=== PATIENT | female | born 1990 | race Caucasian/White ===

== ENCOUNTER 2020-06-10 17:38 | Emergency (ER) | payer MEDICARE, SELFPAY ==
[2020-06-10 17:52] VITALS: BP 111/70; PULSE 63; RESP 14; TEMP 36.8; O2SAT 96; BMI 21.4
--- NOTE | 2020-06-10 20:24 | ED.SKABFB ---
HPI - Skin/Abscess/Foreign Bdy General Chief complaint: Skin/Abscess/Foreign Body Stated complaint: MY BUTT HURTS RASH DIARRHEA ARM PAIN Time Seen by Provider: 06/10/20 20:21 Source: patient Mode of arrival: Ambulatory Limitations: no limitations History of Present Illness HPI narrative: 29F smoker with history of IVDA and recent hospitalization for debridement and I&D of left deltoid abscess presents with ongoing diarrhea since her hospitalization and now burning, raw sensation of her buttocks. She denies fever or chills. She denies N/V. She denies any blood in stool. She has a few loose stools daily, but this seems to be improving since starting Immodium. She denies CP, SOB, or abdominal pain. Also she complains of a small bump adjacent to the surgical site. It is painless and has had no drainage. She has not seen her doctors in follow up, but will do so shortly. She is not dizzy, weak, or lightheaded. MD complaint: other Onset (ago): day(s) Tetanus up to date: yes Related Data Previous Rx's Medication Instructions Recorded diphenoxylate-atropine [Lomotil] 1 tab PO Q12H PRN #14 tab 06/10/20 Allergies Allergy/AdvReac Type Severity Reaction Status Date / Time latex Allergy Verified 06/10/20 17:52 Review of Systems Constitutional Constitutional: Denies chills, Denies fatigue, Denies fever(s), Denies frequent falls, Denies lethargy and Denies weakness Eyes Eyes: Denies change in vision, Denies eye discharge, Denies irritation and Denies loss of vision ENT Ears, Nose, Mouth, and Throat: Denies change in voice, Denies dizziness, Denies neck pain, Denies sore throat and Denies throat swelling Cardiovascular Cardiovascular: Denies chest pain, Denies irregular heart rhythm, Denies lightheadedness, Denies palpitations, Denies dyspnea, Denies dyspnea on exertion and Denies orthopnea Respiratory Respiratory: Denies cough, Denies dyspnea, Denies dyspnea on exertion and Denies wheezing Gastrointestinal Gastrointestinal: Denies abdominal pain, Denies change in bowel habits, Denies diarrhea, Denies nausea and Denies vomiting Musculoskeletal Musculoskeletal: Denies neck pain and Denies numbness Integumentary/Breasts Skin/Breast: Denies pruritus, Denies erythema, Denies rash, Reports skin pain, Reports skin swelling and Denies wounds Neurologic Neurologic: Denies behavioral changes, Denies confusion, Denies dizziness, Denies frequent falls, Denies loss of vision, Denies numbness and Denies weakness Psychiatric Psychiatric: Denies anxiety, Denies behavioral changes, Denies confusion, Denies depression, Denies homicidal ideation and Denies suicidal ideation Endocrine Endocrine: Denies fatigue, Denies flushing and Denies palpitations Hematologic/Lymphatic Hematologic/Lymphatic: Denies easy bruising Allergic/Immunologic Allergic/Immunologic: Denies urticaria, Denies throat swelling and Denies wheezing Patient History Social History Smoking Status: Current every day smoker Smoking Status: Current every day smoker alcohol intake frequency: holidays/special occasions only Substance Use Type: does not use Exam Narrative Exam Narrative: GENERAL: [29] year old patient appears stated age. Well-nourished, well-developed patient, in mild distress. HEAD: Atraumatic. Normocephalic. EYES: Pupils equal round and reactive. Extraocular motions intact. No scleral icterus. No injection or drainage. ENT: Nose without bleeding, purulent drainage. Throat without erythema, tonsillar hypertrophy or exudate. Airway patent. NECK: Trachea midline. Non tender CARDIOVASCULAR: Regular rate and rhythm without murmurs, gallops, or rubs. RESPIRATORY: Clear to auscultation. Breath sounds equal bilaterally. No wheezes, rales, or rhonchi. GASTROINTESTINAL: Abdomen soft, non-tender, nondistended. RECTAL: No hemorrhoid, abscess, fissure noted. There is some redness and excoriation of the perianal area. EXTREMITIES: No edema or joint tenderness. BACK: Nontender without deformity or crepitance. No flank tenderness. NEURO: AOx3. SKIN: L deltoid with healing surgical site. No drainage, pain on palpation or surrounding erythema. Small area of swelling adjacent without pain, fluctuance, erythema. Otherwise No rash or erythema of visible areas Initial Vital Signs Initial Vital Signs: Vital Signs Temperature 98.3 F 06/10/20 17:52 Pulse Rate 63 06/10/20 17:52 Respiratory Rate 14 06/10/20 17:52 Blood Pressure 111/70 06/10/20 17:52 Pulse Oximetry 96 06/10/20 17:52 Course Course Course Narrative: discussed desire to obtain stool sample from patient due to concern for C.diff. Recommended labs and fluids, but patient and friend refuse stating that she largely feels ok and would prefer to just get a prescription for some antidiarrheal medication. Patient understands the risk of not doing diagnostic evaluation, but would prefer to hold off for now and follow up with her doctors in [place]. Vital Signs Vital signs: Vital Signs - 8 hr 06/10/20 17:52 06/10/20 20:49 Temperature 98.3 F Pulse Rate 63 63 Respiratory Rate 14 16 Blood Pressure 111/70 114/74 Pulse Oximetry 96 96 Discharge Plan Departure Patient Disposition: Home Clinical Impression: Chronic diarrhea Discharge Date/Time: 06/10/20 20:49 Instructions: Diarrhea Activity Restrictions/Additional Instructions: *You have been diagnosed with [chronic diarrhea, likely associated with an antibiotic use.] *What to do: *Take medications as directed *Follow up with your primary care provider in 2-3 days, call for an appointment. Let them know you were seen in the Emergency Department and that we ask that you be seen in follow up *Return to ER if you should have any new, worsening or concerning symptoms Prescriptions: New diphenoxylate-atropine [Lomotil] 2.5-0.025 mg tablet 1 tab PO Q12H PRN (Reason: diarrhea) Qty: 14 RF: 0 Referrals: [facility] [Outside]
[2020-06-10 20:49] VITALS: BP 114/74; PULSE 63; RESP 16; O2SAT 96
== END 2020-06-10 20:49 | disposition home or self-care (01) ==
PROVIDERS: Emergency Provider Emergency Medicine
DX: K52.9 Noninfective gastroenteritis and colitis, unspecified (principal)
CPT/HCPCS: 99281

== ENCOUNTER 2020-10-14 15:36 | Emergency (ER) | payer MEDICARE, SELFPAY ==
[2020-10-14 15:53] VITALS: BP 111/65; PULSE 88; RESP 14; TEMP 36.9; O2SAT 98
[2020-10-14 18:47] VITALS: BP 124/71; PULSE 71; RESP 18; O2SAT 100
--- NOTE | 2020-10-14 18:58 | ED.SKABFB ---
HPI - Skin/Abscess/Foreign Bdy General Chief complaint: Skin/Abscess/Foreign Body Stated complaint: abcess on arms,blood in stool,seizures Time Seen by Provider: 10/14/20 18:52 Source: patient Mode of arrival: Ambulatory Limitations: no limitations History of Present Illness HPI narrative: 30-year-old female daily smoker with history of seizures and former IV drug abuse presents with multiple painful swollen, red abscesses on her upper extremities, some of which she has been able to successfully drain at home. She states the largest was an IV site from hospitalization [facility]. She denies fever, chills nor nausea or vomiting. She states she has had frequent episodes of loose stools, many of which seem to have blood in them. She is not dizzy nor weak or lightheaded. She denies any chest pain, shortness of breath or abdominal pain. She denies any vaginal bleeding or discharge. She denies any recent use of IV drugs. She states that she is supposed to have a prescription for antibiotics to treat her abscess from [facility] but their pharmacy ?dropped the ball ?. Additionally she states that they were supposed to refill her Keppra but neglected to do so. complaint: abscess/boil Onset (ago): day(s) Tetanus up to date: yes Location: LUE and RUE Severity: moderate Quality: aching Pain Consistency: constant Relieving factors: none Exacerbating factors: palpation and movement Context: IVDA Associated symptoms: other Treatments prior to arrival: attempted to drain pus at home Related Data Previous Rx's Medication Instructions Recorded diphenoxylate-atropine [Lomotil] 1 tab PO Q12H PRN #14 tab 06/10/20 diphenoxylate-atropine [Lomotil] 1 tab PO DAILY PRN #10 tab 10/15/20 doxycycline hyclate 100 mg PO BID #20 tab 10/15/20 levetiracetam [Keppra] 500 mg PO BID #30 tab 10/15/20 Allergies Allergy/AdvReac Type Severity Reaction Status Date / Time latex Allergy Verified 10/14/20 15:53 Review of Systems Constitutional Constitutional: Denies chills, Denies fatigue, Denies fever(s), Denies frequent falls, Denies lethargy and Denies weakness Eyes Eyes: Denies change in vision, Denies eye discharge, Denies irritation and Denies loss of vision ENT Ears, Nose, Mouth, and Throat: Denies change in voice, Denies dizziness, Denies neck pain, Denies sore throat and Denies throat swelling Cardiovascular Cardiovascular: Denies chest pain, Denies irregular heart rhythm, Denies lightheadedness, Denies palpitations, Denies dyspnea, Denies dyspnea on exertion and Denies orthopnea Respiratory Respiratory: Denies cough, Denies dyspnea, Denies dyspnea on exertion and Denies wheezing Gastrointestinal Gastrointestinal: Denies abdominal pain, Denies change in bowel habits, Reports diarrhea, Denies nausea and Denies vomiting Musculoskeletal Musculoskeletal: Denies neck pain and Denies numbness Integumentary/Breasts Skin/Breast: Denies pruritus, Reports erythema, Denies rash, Reports skin pain, Reports skin swelling and Reports wounds Neurologic Neurologic: Denies behavioral changes, Denies confusion, Denies dizziness, Denies frequent falls, Denies loss of vision, Denies numbness and Denies weakness Psychiatric Psychiatric: Denies anxiety, Denies behavioral changes, Denies confusion, Denies depression, Denies homicidal ideation and Denies suicidal ideation Endocrine Endocrine: Denies fatigue, Denies flushing and Denies palpitations Hematologic/Lymphatic Hematologic/Lymphatic: Denies easy bruising Allergic/Immunologic Allergic/Immunologic: Denies urticaria, Denies throat swelling and Denies wheezing Patient History Social History Smoking Status: Current every day smoker Smoking Status: Current every day smoker alcohol intake frequency: holidays/special occasions only Substance Use Type: does not use, former substance user, crack/cocaine, heroin and methamphetamine Exam Narrative Exam Narrative: GENERAL: [30] year old patient appears stated age. Well-nourished, well-developed patient, in mild distress. HEAD: Atraumatic. Normocephalic. EYES: Pupils equal round and reactive. Extraocular motions intact. No scleral icterus. No injection or drainage. ENT: Nose without bleeding, purulent drainage. Throat without erythema, tonsillar hypertrophy or exudate. Airway patent. NECK: Trachea midline. Non tender CARDIOVASCULAR: Regular rate and rhythm without murmurs, gallops, or rubs. RESPIRATORY: Clear to auscultation. Breath sounds equal bilaterally. No wheezes, rales, or rhonchi. GASTROINTESTINAL: Abdomen soft, non-tender, nondistended. EXTREMITIES: Multiple cutaneous abscesses noted. The largest of which is on her right lateral arm proximal to the elbow. There is an area of fluctuance approximately 2 x 2 cm with a central necrotic head but no drainage and surrounding erythema and induration. Compartments are soft. Cap refill and sensation intact. The erythema covers much of her anterior biceps. Additionally, there is another smaller fluctuant mass on her left upper arm which she states was the 1 that was recently drained [place]. Otherwise No edema or joint tenderness. BACK: Nontender without deformity or crepitance. No flank tenderness. NEURO: AOx3. SKIN: No rash or erythema of visible areas Initial Vital Signs Initial Vital Signs: Vital Signs Temperature 98.4 F 10/14/20 15:53 Pulse Rate 88 10/14/20 15:53 Respiratory Rate 14 10/14/20 15:53 Blood Pressure 111/65 10/14/20 15:53 Pulse Oximetry 98 10/14/20 15:53 Procedures Abscess I/D I&D #1: Side (if applicable): right Local Anesthetic: bupivacaine 0.25% and with epi Amount of anesthesia used (mL): 8 Technique: incised with #11 blade Amount of fluid expressed (mL): 20 Irrigation: No Packing used?: none Complications: pain I&D #2: Site: upper extremity Side (if applicable): left Local Anesthetic: bupivacaine 0.25% and with epi Amount of anesthesia used (mL): 4 Technique: incised with #11 blade Amount of fluid expressed (mL): 2 Irrigation: No Packing used?: none Complications: pain Course Course Course Narrative: After initial exam I told the patient I recommended an IV, lab work and likely a CT of her upper extremities to establish that depth of the abscess. The patient is historically difficult IV stick and after 1st attempt by nursing she refused any further attempts. She then pushed on the abscess on her right arm and a large amount of purulence, foul smelling material came out. She felt notable improvement after this but after extensive discussion we elected to numb with Marcaine and perform incision and drainage. After this she felt much better and experience much less pain in her arm and allowed nursing 1 more attempt at blood work and an IV which was quick lift. On multiple occasions I explained to the patient my desire for lab work, an IV and imaging. She repeatedly refused and stated she had to get blood work done are reviewed tomorrow anyway so she would just go there. Orders Ordered: ED Orders 10/14/20 20:37 Wound Culture and Gram Stain Stat Discontinued Medications Bupivacaine HCl/Epinephrine Bitart (Bupivacaine 0.5% W/ Epi (Pf) 30 Ml Vial) 5 ml SUBCUT NOW ONE Stop: 10/14/20 21:25 Last Admin: 10/14/20 21:49 Dose: 5 ml Documented by: TAISHA Doxycycline Hyclate (Doxycycline Hyclate 100 Mg Tablet) 100 mg PO NOW ONE Stop: 10/15/20 00:00 Last Admin: 10/15/20 00:17 Dose: 100 mg Documented by: MARIA LUISA Vancomycin HCl (Vancomycin) 1,000 mg in 200 mls @ 200 mls/hr IV NOW ONE Stop: 10/14/20 21:15 Last Admin: 10/14/20 21:35 Dose: Not Given Documented by: TAISHA Vital Signs Vital signs: Vital Signs - 8 hr 10/15/20 00:28 Pulse Rate 79 Respiratory Rate 18 Blood Pressure 111/71 Pulse Oximetry 97 MDM - Skin/Abscess/Foreign Bdy MDM Narrative Medical decision making narrative: Multiple cutaneous abscesses with spontaneous drainage and/or improvement after I&D. No systemic findings. No signs of sepsis. Patient reports bloody diarrhea, but denies pain, fever, nausea or vomiting. Abdomen is soft and nontender and vitals are reassuring. Return precautions given and patient's questions answered to her apparent satisfaction. Discharge Plan Departure Patient Disposition: Home Clinical Impression: Abscess of skin or subcutaneous tissue Qualifiers: Site of cutaneous abscess: extremity Site of cutaneous abscess of extremity: upper extremity Laterality: right Qualified Code(s): L02.413 - Cutaneous abscess of right upper limb Instructions: DI for Skin Abscess Activity Restrictions/Additional Instructions: *You have been diagnosed with [cutaneous abscess with incision and drainage of right and left upper extremities.] *What to do: *Take medications as directed *Follow up with your primary care provider in 2-3 days, call for an appointment. Let them know you were seen in the Emergency Department and that we ask that you be seen in follow up *Return to ER if you should have any new, worsening or concerning symptoms, such as [worsening swelling, pain, fever, shaking chills or other concerning symptoms] Prescriptions: New doxycycline hyclate 100 mg tablet 100 mg PO BID Qty: 20 RF: 0 levetiracetam [Keppra] 500 mg tablet 500 mg PO BID Qty: 30 RF: 0 diphenoxylate-atropine [Lomotil] 2.5-0.025 mg tablet 1 tab PO DAILY PRN (Reason: diarrhea) Qty: 10 RF: 0 No Action diphenoxylate-atropine [Lomotil] 2.5-0.025 mg tablet 1 tab PO Q12H PRN (Reason: diarrhea) Qty: 14 RF: 0 Referrals: [facility] [Outside]
--- NOTE | 2020-10-14 20:49 | PC.NURSE ---
attempted IV start to [facility], found a vein just below axilla, pt refused stating, it feels strange when you touch it Pt requested I forgo cleaning of site and just poke vein. told patient that puts her at risk for additional infections. Pt unable to remain still or cooperative during start. Notified Dr Fonseca of difficulty in starting IV. Pt is refusing an IV saying she is just going to go home and cut it open herself using lidocaine she stole from the last hospital. Pt refusing any further blood draw or IV start. Pt has had 1 poke to [facility]. Site was prepped and cleaned using chlorhexadine per protocol for cultures.
[2020-10-14] MEDS: BUPIVACAINE 0.5% W/ EPI (PF) 30 ML VIAL 5 ML SUBCUT (21:49)
[2020-10-15] MEDS: DOXYCYCLINE HYCLATE 100 MG TABLET PO (00:17)
[2020-10-15 00:28] VITALS: BP 111/71; PULSE 79; RESP 18; O2SAT 97
== END 2020-10-15 00:30 | disposition home or self-care (01) ==
PROVIDERS: Emergency Provider Emergency Medicine
DX: L02.413 Cutaneous abscess of right upper limb (principal); L02.414 Cutaneous abscess of left upper limb; R19.7 Diarrhea, unspecified
CPT/HCPCS: 10061; 87070; 87075; 87077; 87205; 99281; 99283

== ENCOUNTER 2020-11-21 22:50 | Emergency (ER) | payer MEDICARE, SELFPAY ==
[2020-11-21 22:55] VITALS: BP 115/60; PULSE 89; RESP 17; TEMP 36.9; O2SAT 100; BMI 21.9
--- NOTE | 2020-11-21 23:13 | PC.NURSE ---
Patient has multiple scattered abcesses in different stages of healing; the one on her nose is new from yesterday, she states it was more of a pimple yesterday, and today it is open and red; Known previous abcesses that are still on patient are on bilateral arms, legs, near armpit, and underneath tongue. Some are scabbed over, some have some small amount of drainage. Hx IVDU Pt states she has had some chills this week
--- NOTE | 2020-11-21 23:36 | ED_ITS ---
HPI - Skin/Abscess/Foreign Bdy General Chief complaint: Skin/Abscess/Foreign Body Stated complaint: Abcesses on body Time Seen by Provider: 11/21/20 23:02 Source: patient Mode of arrival: Ambulatory Limitations: no limitations History of Present Illness HPI narrative: Patient is a 30-year-old female who states she has a history of seizure and IVDA but has been clean and sober since April. Presents today with multiple sores all over her body and she has previously. She has 1 on her left deltoid that is scabbed and healing it was apparently eye indeed while ago but was reinfected. Today she has a scab on her nose and her chin which she says just popped up this morning. She has multiple scabs on her legs. Her hands are quite swollen and red as well. She denies any fever or chills. She is having chronic diarrhea she left stool sample and it was a solid piece of stool. She also feels like she might have a bladder infection. She is requesting a refill of her seizure medication. She was seen back the beginning of September she was prescribed Keppra 500 twice a day. She has not gone to a primary care provider she has not been evaluated by a neurologist. She says she that she has mini-mal seizures every day, but cannot describe them to me MD complaint: rash and abscess/boil Location: face Related Data Previous Rx's Medication Instructions Recorded diphenoxylate-atropine [Lomotil] 1 tab PO Q12H PRN #14 tab 06/10/20 diphenoxylate-atropine [Lomotil] 1 tab PO DAILY PRN #10 tab 10/15/20 doxycycline hyclate 100 mg PO BID #20 tab 10/15/20 levetiracetam [Keppra] 500 mg PO BID #30 tab 10/15/20 mupirocin 1 applic TOPICAL BID #15 g 11/21/20 sulfamethoxazole-trimethoprim 1 tab PO BID 7 Days #14 tab 11/21/20 [Bactrim DS] doxycycline hyclate 100 mg PO BID #14 cap 11/22/20 Allergies Allergy/AdvReac Type Severity Reaction Status Date / Time latex Allergy Verified 10/14/20 15:53 Review of Systems Review of Systems ROS Unobtainable: All systems reviewed & are unremarkable except as noted in HPI and below Constitutional Constitutional: Denies chills, Denies fever(s), Denies lethargy and Denies weakness Integumentary/Breasts Skin/Breast: Reports system reviewed and no additional complaints, except as documented Neurologic Neurologic: Reports as per HPI and Denies weakness Patient History Medical History History of seizure Social History Smoking Status: Current every day smoker Smoking Status: Current every day smoker alcohol intake frequency: holidays/special occasions only Substance Use Type: does not use, former substance user, crack/cocaine, heroin and methamphetamine Exam Initial Vital Signs Initial Vital Signs: Vital Signs Temperature 98.5 F 11/21/20 22:55 Pulse Rate 89 11/21/20 22:55 Respiratory Rate 17 11/21/20 22:55 Blood Pressure 115/60 11/21/20 22:55 Pulse Oximetry 100 11/21/20 22:55 GENERAL: Alert female poor hygiene HEENT: Head atraumatic,EOMI, pupils reactive, face symmetric, moist mucous membranes CARDIOVASCULAR: Peripheral pulses intact RESPIRATORY: Speaks in full sentences without any respiratory distress EXTREMITIES: Normal range of motion, no clubbing or edema. Neurovascularly intact hands are swollen bilaterally NEUROLOGICAL: Alert and oriented x4.Normal gait and speech. SKIN: No multiple sores all over scabbed area on nose and chin no fluctuation. A healing wound on left deltoid new areas scabbed and healing on anterior shins. She has 1 spot on her right medial thigh. None of these are fluctuant erythematous abscesses. They all seem to be scabbed over no significant erythema or cellulitis no gross pus Course Orders Ordered: ED Orders 11/21/20 23:26 Test Urine Stat Urinalysis and Microscopic Stat Urine Culture Stat Urine Drug Screen, Rapid Stat Discontinued Medications Trimethoprim/Sulfamethoxazole (Trimeth/Sulfa 160/800 Prepack) 1 bottle [facility] SEEIN[facility] ONE Stop: 11/21/20 23:58 Last Admin: 11/22/20 00:07 Dose: 1 bottle Documented by: Vital Signs Vital signs: Vital Signs - 8 hr 11/21/20 22:55 11/22/20 00:10 Temperature 98.5 F Pulse Rate 89 87 Respiratory Rate 17 16 Blood Pressure 115/60 112/66 Pulse Oximetry 100 96 MDM - Skin/Abscess/Foreign Bdy Lab Data Attestation: I reviewed the patient's lab results. Labs: Lab Results 11/21/20 11/21/20 11/21/20 Range/Units 23:26 23:26 23:26 Urine Color Yellow Urine Appearance Cloudy Urine pH 7.0 (4.5-8.0) Ur Specific [place] 1.025 (1.000-1.035) Urine Protein Trace H (Negative) Urine Glucose (UA) Negative (Negative) g/dL Urine Ketones Trace H (NEGATIVE) Urine Occult Blood Trace-lysed (Negative) Urine Nitrate Negative (Negative) Urine Bilirubin Negative (NEGATIVE) Urine Urobilinogen 0.2 (0.2) E.U./dL Ur Leukocyte Esterase 1+ H (NEGATIVE) Urine RBC None seen (0-5/HPF) Urine WBC 5-10/hpf H (0-5/HPF) Ur Squamous Epith Cells 0-1 /hpf (0-5/HPF) Urine Bacteria Many (>30) H (None) Ur Culture Indicated? Specimen cultured Urine Test Negative (Negative) U Opiates 300ng/mL cut Positive H (Negative) Ur Oxycodone Screen Negative (Negative) Urine Methadone Screen Positive H (Negative) Ur Barbiturates Screen Negative (Negative) U Tricyclic Antidepress Negative (Negative) Ur Phencyclidine Scrn Negative (Negative) Ur Amphetamines Screen Positive H (Negative) U Methamphetamines Scrn Positive H (Negative) Ur MDMA Scrn (Ecstasy) Positive H (Negative) U Benzodiazepines Scrn Negative (Negative) Urine Cocaine Screen Negative (Negative) U Marijuana (THC) Screen Negative (Negative) [facility] Narrative Medical decision making narrative: PATIENT STATES THAT SHE HAS HAD BLADDER RECONSTRUCTIVE SURGERY SHE HAS HAD FREQUENT UTIS BACTRIM WORKS FOR HER UTIS ONLY DOXYCYCLINE WORKS FOR HER SKIN she is very demanding on what antibiotics work f or her she is now wanting Lomotil for her chronic ongoing diarrhea. She actually gave a stool sample in the ED and it was formed. I will not prescribe her for Lomotil. Her drug screen came back unsurprisingly positive for multiple substances. Discharge Plan Departure Patient Disposition: Home Clinical Impression: Cellulitis Instructions: DI for Cellulitis -- Adult Activity Restrictions/Additional Instructions: *You have been diagnosed with multiple skin sores *What to do: Is strongly recommended that you see a neurologist for further treatment of your seizures. DO NOT DRIVE UNTIL SEEN AND EVALUATED BY NEUROLOGY *Continue to take medications as directed-> sent to [facility] in [place] Bactrim 1 tablet twice a day for 7 days Mupirocin ointment twice daily to areas *Follow up with your primary care provider in 2-3 days *Return to ER if you should have any new, worsening or concerning symptoms Prescriptions: New sulfamethoxazole-trimethoprim [Bactrim DS] 800-160 mg tablet 1 tab PO BID 7 Days Qty: 14 RF: 0 mupirocin 2 % ointment 1 applic topical BID Qty: 15 RF: 0 doxycycline hyclate 100 mg capsule 100 mg PO BID Qty: 14 RF: 0 No Action diphenoxylate-atropine [Lomotil] 2.5-0.025 mg tablet 1 tab PO Q12H PRN (Reason: diarrhea) Qty: 14 RF: 0 doxycycline hyclate 100 mg tablet 100 mg PO BID Qty: 20 RF: 0 levetiracetam [Keppra] 500 mg tablet 500 mg PO BID Qty: 30 RF: 0 diphenoxylate-atropine [Lomotil] 2.5-0.025 mg tablet 1 tab PO DAILY PRN (Reason: diarrhea) Qty: 10 RF: 0 Referrals: [facility] [Outside] Ludwin Jacobo MD [Non-Staff] -
[2020-11-21 23:44] LABS: RBC Urine None Seen (0-5/HPF)
[2020-11-21 23:48] LABS: Pregnancy Test Urine Negative (Negative)
[2020-11-21 23:53] LABS: Ur Creatinine Normal (Normal); Ur Specific Gravity Normal (Normal); Urine pH Normal (Normal)
[2020-11-21 23:54] LABS: UR Morphine/Opiate cutoff 300 Positive (Negative); Urine Amphetamines Positive (Negative); Urine Barbiturates Negative (Negative); Urine Benzodiazepines Negative (Negative); Urine Cocaine Negative (Negative); Urine MDMA Positive (Negative); Urine Methadone Positive (Negative); Urine Methamphetamines Positive (Negative); Urine Oxycodone Negative (Negative); Urine Phencyclidine Negative (Negative); Urine Tetrahydrocannabinol Negative (Negative); Urine Tricyclic Antidepressant Negative (Negative)
[2020-11-21 23:55] LABS: Appearance Urine UA CLOUDY; Color Urine UA Yellow; Protein Urine UA TRACE (Negative); Specific Gravity Urine UA 1.025 (1.000-1.035)
[2020-11-21 23:56] LABS: Bacteria Urine Many (>30); Bilirubin Urine UA Negative (NEGATIVE); Glucose Urine UA NEGATIVE (Negative); Ketones Urine UA TRACE (NEGATIVE); Leukocyte Esterase Urine UA 1+ (NEGATIVE); Nitrite Urine UA NEGATIVE (Negative); Occult Blood Urine UA TRACE-LYSED (Negative); Squamous Epithelial Cell Urine 0-1 /HPF (0-5/HPF); Urobilinogen Urine UA 0.2 E.U./dL (0.2); WBC Urine 5-10/HPF (0-5/HPF)
[2020-11-21 23:57] LABS: Culture Indicated Urine Specimen Cultured
[2020-11-22] MEDS: TRIMETH/SULFA 160/800 PREPACK 1 BOTTLE MISC (00:07)
[2020-11-22 00:10] VITALS: BP 112/66; PULSE 87; RESP 16; O2SAT 96
== END 2020-11-22 00:10 | disposition home or self-care (01) ==
PROVIDERS: Emergency Provider Emergency Medicine
DX: L03.818 Cellulitis of other sites (principal); R19.7 Diarrhea, unspecified; Z87.898 Personal history of other specified conditions
CPT/HCPCS: 80305; 81001; 81025; 87077; 87086; 87186; 99281; 99283

== ENCOUNTER 2021-10-31 05:12 | Emergency (ER) | payer MEDICARE, MEDICAID, SELFPAY ==
[2021-10-31 05:16] VITALS: BP 144/87; PULSE 96; RESP 18; TEMP 36.6; O2SAT 99
--- NOTE | 2021-10-31 05:57 | ED.PSYCH ---
HPI - Psych General Chief Complaint: Psychiatric Symptoms Stated Complaint: mental health crisis Time Seen by Provider: 10/31/21 05:16 Source: patient Mode of arrival: Ambulatory History of Present Illness HPI Narrative: 31-year-old female daily smoker with history of bipolar and extensive polysubstance abuse history presents with a chief complaint of being out of her bipolar medications and requesting refill. She denies any suicidal or homicidal ideation. She does not want hospitalization. She is able to care for self including bathing, cooking and eating. She has been off of her medication for multiple reasons including insurance change [place] She typically takes Wellbutrin XL 300 mg and Topamax 1000 mg but has not for a few weeks. She is scheduled to connect with a methadone clinic on Tuesday. She admits to smoking fentanyl and occasionally using methamphetamines to help self medicate. She is here with her and is staying with friends, she has a safe place to go and is able to contract for safety Related Data Previous Rx's Medication Instructions Recorded diphenoxylate-atropine 2.5 1 tab PO Q12H PRN #14 tab 06/10/20 mg-0.025 mg tablet (Lomotil) diphenoxylate-atropine 2.5 1 tab PO DAILY PRN #10 tab 10/15/20 mg-0.025 mg tablet (Lomotil) doxycycline hyclate 100 mg tablet 100 mg PO BID #20 tab 10/15/20 levetiracetam 500 mg tablet 500 mg PO BID #30 tab 10/15/20 (Keppra) mupirocin 2 % topical ointment 1 applic TOPICAL BID #15 g 11/21/20 doxycycline hyclate 100 mg capsule 100 mg PO BID #14 cap 11/22/20 Wellbutrin XL 300 mg 24 hr tablet, 300 mg PO QAM #30 tab NS 10/31/21 extended release (bupropion HCl) topiramate 200 mg tablet (Topamax) 200 mg PO BID #60 tab 10/31/21 Allergies Allergy/AdvReac Type Severity Reaction Status Date / Time latex Allergy Verified 10/14/20 15:53 Review of Systems Review of Systems Narrative: GENERAL: Denies chills, fatigue, malaise, fever, sweats. HEENT: Denies sinus pain, ear pain, sore throat, difficulty swallowing, dizziness. RESPIRATORY: Denies dyspnea, cough, wheezing, hemoptysis, sputum. CARDIOVASCULAR: Denies chest pain, palpitations, orthopnea, edema, GASTROINTESTINAL: Denies nausea, vomiting, abdominal pain, diarrhea, constipation, melena. : Denies dysuria, frequency, incontinence, hematuria, urinary retention. MUSCULOSKELETAL: denies weakness, joint pain, or bony pain SKIN: Denies rash, skin lesions, or other NEUROLOGIC: Denies weakness, headache, numbness, change in speech, confusion, seizures, incoordination. PSYCHIATRIC: No concerning psychosocial issues. 12 point review of systems is negative except for those stated above Patient History Medical History History of seizure Social History Smoking Status: Current every day smoker Smoking Status: Current every day smoker alcohol intake frequency: holidays/special occasions only Substance Use Type: does not use, former substance user, crack/cocaine, heroin and methamphetamine Exam Narrative Exam Narrative: GEN: AOx3 and in mild distress, a bit anxious and slightly disheveled, alert and oriented x3, speaks clearly and walks a straight line. She clearly demonstrates capacity EYES: Pupils are equal, round, and reactive to light and accommodation. Extraoccular muscles are intact bilaterally. There is no subconjunctival hemorrhage or exudate. CHEST: Lungs are clear to auscultation bilaterally and free of wheezes, rales, or rhonchi. Heart rate is regular rhythm, there are no murmurs, clicks, rubs, or gallops. There is no chest wall tenderness. ABD: Abdomen is soft and nontender. There is no guarding or rebound. Bowel sounds are normal in all 4 quadrants. There is no mass or organomegaly. EXT: Full painless ROM of all extremities with no loss of sensation or strength. SKIN: Warm, pink, and dry. No erythema or rash Initial Vital Signs Initial Vital Signs: Vital Signs Temperature 97.9 F 10/31/21 05:16 Pulse Rate 96 H 10/31/21 05:16 Respiratory Rate 18 10/31/21 05:16 Blood Pressure 144/87 H 10/31/21 05:16 Pulse Oximetry 99 10/31/21 05:16 Course Orders Ordered: ED Orders 10/31/21 05:16 Complete Blood Count AUTO DIFF Stat Comprehensive Metabolic Panel Stat Ethanol (ETOH) Stat Urine Drug Screen, Rapid Stat Discontinued Medications Bupropion HCl (Bupropion 75 Mg Tablet) 300 mg PO NOW ONE Stop: 10/31/21 05:35 Clonidine HCl (Clonidine Tts 0.1 Mg Patch) 0.1 mg TOP NOW ONE Stop: 10/31/21 05:35 Topiramate (Topiramate 100 Mg Tablet) 200 mg PO NOW ONE Stop: 10/31/21 05:41 Vital Signs Vital signs: Vital Signs - 8 hr 10/31/21 05:16 Temperature 97.9 F Pulse Rate 96 H Respiratory Rate 18 Blood Pressure 144/87 H Pulse Oximetry 99 Discharge Plan Departure Patient Disposition: Home Clinical Impression: Bipolar disorder Instructions: DI for Bipolar Disorder Activity Restrictions/Additional Instructions: *You have been diagnosed with [medication refill, bipolar disorder *What to do: *Please continue to take your regular medications as directed. [ ] New medication prescriptions sent to your pharmacy: [ ] [x ] New medication written as a paper prescription [ ] No new medications given * *If you feel that you are entering into mental health crisis you have multiple options 1. Return to the ER immediately 2. Call the Crisis Line at [phone] 3. Send an anonymous text [place] to [phone] 4. Navigate your web browser to [facility] to engage in anonymous chat with a mental health worker *If you do not have a primary care provider please contact the [facility] Resource line at [phone]. They will ask some questions about your medical history and help get you set up with a doctor in the community. *Return to Emergency Department if you should have any new, worsening or concerning symptoms, such as [fever greater than 101 F, shaking chills, worsening pain, persistent vomiting or other bothersome symptoms] Prescriptions: New bupropion HCl [Wellbutrin XL] 300 mg tablet extended release 24 hr 300 mg PO QAM Qty: 30 0RF topiramate [Topamax] 200 mg tablet 200 mg PO BID Qty: 60 0RF No Action diphenoxylate-atropine [Lomotil] 2.5-0.025 mg tablet 1 tab PO Q12H PRN (Reason: diarrhea) Qty: 14 0RF doxycycline hyclate 100 mg tablet 100 mg PO BID Qty: 20 0RF levetiracetam [Keppra] 500 mg tablet 500 mg PO BID Qty: 30 0RF diphenoxylate-atropine [Lomotil] 2.5-0.025 mg tablet 1 tab PO DAILY PRN (Reason: diarrhea) Qty: 10 0RF mupirocin 2 % ointment 1 applic topical BID Qty: 15 0RF doxycycline hyclate 100 mg capsule 100 mg PO BID Qty: 14 0RF Referrals: [facility] [Outside] [facility] [Outside]
[2021-10-31] MEDS: buPROPion 75 MG TABLET 300 MG PO (06:18)
[2021-10-31] MEDS: cloNIDine TTS 0.1 MG PATCH TOP (06:18)
[2021-10-31] MEDS: TOPIRAMATE 100 MG TABLET 200 MG PO (06:18)
[2021-10-31 06:40] VITALS: BP 151/78; PULSE 88; RESP 20; O2SAT 98
== END 2021-10-31 06:40 | disposition home or self-care (01) ==
PROVIDERS: Emergency Provider Emergency Medicine
DX: F31.9 Bipolar disorder, unspecified (principal); F17.200 Nicotine dependence, unspecified, uncomplicated
CPT/HCPCS: 99283

== ENCOUNTER 2023-05-07 01:18 | Emergency (ER) | payer MEDICARE, MEDICAID, SELFPAY ==
[2023-05-07 01:25] VITALS: BP 132/95; PULSE 75; RESP 16; TEMP 36.8; O2SAT 95; BMI 23.8
[2023-05-07 02:16] LABS: Bacteria Urine Many (>30); RBC Urine >100/HPF (0-5/HPF); Squamous Epithelial Cell Urine 1-5 /HPF (0-5/HPF); WBC Urine 1-5/HPF (0-5/HPF)
[2023-05-07 02:17] LABS: Culture Indicated Urine Specimen Cultured
--- NOTE | 2023-05-07 03:37 | ED_ITS ---
HPI - Recheck/Abnormal Lab/Rx General Chief Complaint: Recheck/Abnormal Lab/Rx Stated Complaint: Mental Health Meds Time Seen by Provider: 05/07/23 03:36 Source: patient Mode of arrival: Ambulatory History of Present Illness HPI narrative: 32-year-old woman with history of bipolar type 2, borderline personality disorder, methamphetamine use presents requesting medication refills to last her until she can get to her June 11Jan mental health appointment. She is not currently suicidal but feels that she is cycling rapidly in way that is deleterious to her marriage. She is accompanied by her . She does not report any visual or auditory hallucinations. She is alert and appropriate with good eye contact. Normal speech patterns. She does not feel that she needs to be in the hospital at this time. She incidentally notes that she is had some dysuria and minor hematuria starting about 12 hours ago. She is had bladder infections in the past and believes she is starting another 1. She describes no vaginal discharge. No fevers and she has no other complaints at this time. Related Data Previous Rx's Medication Instructions Recorded diphenoxylate-atropine 2.5 1 tab PO Q12H PRN diarrhea #14 tabs 06/10/20 mg-0.025 mg tablet (Lomotil) diphenoxylate-atropine 2.5 1 tab PO DAILY PRN diarrhea #10 10/15/20 mg-0.025 mg tablet (Lomotil) tabs doxycycline hyclate 100 mg tablet 100 mg PO BID #20 tabs 10/15/20 levetiracetam 500 mg tablet 500 mg PO BID #30 tabs 10/15/20 (Keppra) mupirocin 2 % topical ointment 1 applic topical BID #15 grams 11/21/20 doxycycline hyclate 100 mg capsule 100 mg PO BID #14 caps 11/22/20 Wellbutrin XL 300 mg 24 hr tablet, 300 mg PO QAM #30 tabs 10/31/21 extended release (bupropion HCl) topiramate 200 mg tablet (Topamax) 200 mg PO BID #60 tabs 10/31/21 ciprofloxacin HCl 750 mg tablet 750 mg PO BID #10 tabs 05/07/23 lithium carbonate 600 mg capsule 600 mg PO BID #60 caps 05/07/23 quetiapine 200 mg tablet (Seroquel) 200 mg PO BID #60 tabs 05/07/23 risperidone 3 mg tablet (Risperdal) 3 mg PO DAILY #30 tabs 05/07/23 topiramate 200 mg tablet (Topamax) 200 mg PO BID #60 tabs 05/07/23 Allergies Allergy/AdvReac Type Severity Reaction Status Date / Time latex Allergy Verified 10/14/20 15:53 Review of Systems Review of Systems Narrative: Pertinent positive and negative findings as per HPI Patient History Medical History (Updated 05/07/23 @ 04:21 by Kamini Tarango MD) Bipolar 2 disorder Borderline personality disorder History of seizure Methamphetamine use Social History Smoking Status: Current every day smoker Smoking Status: Current every day smoker tobacco type: vaping alcohol intake frequency: holidays/special occasions only Substance Use Type: does not use, former substance user, crack/cocaine, heroin, opiates and methamphetamine Exam Initial Vital Signs Initial Vital Signs: Vital Signs Temperature 98.3 F 05/07/23 01:25 Pulse Rate 75 05/07/23 01:25 Respiratory Rate 16 05/07/23 01:25 Blood Pressure 132/95 H 05/07/23 01:25 Pulse Oximetry 95 05/07/23 01:25 Oxygen Delivery Method Room Air 05/07/23 01:25 General: Alert appropriate in no acute distress Respiratory: Able to speak in full sentences, no obvious respiratory distress Skin: No obvious rashes, warm and dry Neurologic: Grossly intact no obvious asymmetries or abnormalities Psych: Appropriate speech patterns, good eye contact, normal thought content no suicidal ideation Extremities show chronically edematous and hyperemic hands Course Orders Ordered: ED Orders 05/07/23 02:05 Urine Culture Stat Urine Microscopic Stat Vital Signs Vital signs: Vital Signs - 8 hr 05/07/23 01:25 Temperature 98.3 F Pulse Rate 75 Respiratory Rate 16 Blood Pressure 132/95 H Pulse Oximetry 95 Oxygen Delivery Method Room Air MDM - Recheck/Abnormal Lab/Rx Lab Data Labs: Lab Results 05/07/23 Range/Units 02:05 Urine RBC >100/hpf H (0-5/HPF) Urine WBC 1-5/hpf (0-5/HPF) Ur Squamous Epith Cells 1-5 /hpf (0-5/HPF) Urine Bacteria Many (>30) H (None) Ur Culture Indicated? Specimen cultured Urine Dip Bedside Urine Glucose Negative Bedside Urine Bilirubin - Negative Bedside Urine Ketone - Negative Urine Specific [place] 1.015 Bedside Urine Occult Blood +++ Bedside Urine pH 7.5 Bedside Urine Protein ++ 100 Bedside Urine Urobilinogen - Negative Bedside Urine Nitrite + Positive Bedside Urine Leukocytes ++ 125 Esterase MDM Narrative Medical decision making narrative: CC: Needs medication refills prior to June 11 appointment. This is an acute problem uncertain prognosis Complicating co-morbidities: Complicated psychiatric diagnoses, methamphetamine use Data collected from: patient, Social determinants of health that may influence the patients condition: Unsteady living situation Medical records reviewed: Urinary tract infection showing E coli from October of 2020 sensitive to 1st generation cephalosporin is reviewed Differential considered: Acute psychosis, acute cydney, suicidal ideation Exam documented above, pertinent findings include: Appropriate interaction and appropriate insight at this point. No need for hospitalization currently Lab Test results independently reviewed as above. Pertinent findings: Urinalysis with blood leukocytes and bacteria Discussion: Patient is requesting medications to help with psychiatric diagnoses. She is very clear on medications and doses will go ahead and do 1 month of refills with 1 refill each to get her through the June 11 a ppointment. We will also treat her with 5 days cipro for her acute urinary tract infection. Urine sensitivities from UTI in October of 2020 indicate resistance to Bactrim and ampicillin and patient is allergic to amoxicillin and Keflex. Other oral options include Cipro and levofloxacin. She states that she can tolerate both. Encouraged her to return if she showing any signs of worsening infection or worsening psychiatric issues. No evidence of suicidal ideation or acute cydney today. Questions are answered and patient is safe for discharge home with her . Discharge Plan Departure Patient Disposition: Home Clinical Impression: Borderline personality disorder Bipolar disorder Qualifiers: Active/Remission status: currently active Current bipolar episode type: mixed Current episode severity: moderate Qualified Code(s): F31.62 - Bipolar disorder, current episode mixed, moderate Urinary tract infection Qualifiers: Urinary tract infection type: acute cystitis Hematuria presence: with hematuria Qualified Code(s): N30.01 - Acute cystitis with hematuria Instructions: DI for Urinary Tract Infection (UTI) Activity Restrictions/Additional Instructions: Thank you for coming in today. Based on previous bladder infections, I am going to give you 5 days of cipro for a presumed recurrent E coli bladder infection. Your urine has been cultured and if a different antibiotic is required we will contact you. Thank you for being proactive regarding your psychiatric medications. I understand that accessing medical care can be challenging. Prescriptions include: Topamax 200 mg b.i.d. Seroquel 200 mg b.i.d. [place] 600 mg b.i.d. Risperidone 3 mg daily Cipro 750mg bid for 5 days Prescriptions: New ciprofloxacin HCl 750 mg tablet 750 mg PO BID Qty: 10 0RF topiramate [Topamax] 200 mg tablet 200 mg PO BID Qty: 60 1RF quetiapine [Seroquel] 200 mg tablet 200 mg PO BID Qty: 60 1RF lithium carbonate 600 mg capsule 600 mg PO BID Qty: 60 1RF risperidone [Risperdal] 3 mg tablet 3 mg PO DAILY Qty: 30 1RF No Action diphenoxylate-atropine [Lomotil] 2.5-0.025 mg tablet 1 tab PO Q12H PRN (Reason: diarrhea) Qty: 14 0RF doxycycline hyclate 100 mg tablet 100 mg PO BID Qty: 20 0RF levetiracetam [Keppra] 500 mg tablet 500 mg PO BID Qty: 30 0RF diphenoxylate-atropine [Lomotil] 2.5-0.025 mg tablet 1 tab PO DAILY PRN (Reason: diarrhea) Qty: 10 0RF mupirocin 2 % ointment 1 applic topical BID Qty: 15 0RF doxycycline hyclate 100 mg capsule 100 mg PO BID Qty: 14 0RF bupropion HCl [Wellbutrin XL] 300 mg tablet extended release 24 hr 300 mg PO QAM Qty: 30 0RF topiramate [Topamax] 200 mg tablet 200 mg PO BID Qty: 60 0RF Stand Alone Forms: Patient Portal/API
[2023-05-07] MEDS: CIPROFLOXACIN 250 MG TABLET 750 MG PO (04:32)
[2023-05-07 04:37] VITALS: BP 112/60; PULSE 63; RESP 16; O2SAT 96
== END 2023-05-07 04:37 | disposition home or self-care (01) ==
PROVIDERS: Emergency Provider Emergency Medicine
DX: F31.62 Bipolar disorder, current episode mixed, moderate (principal); N30.01 Acute cystitis with hematuria; F60.3 Borderline personality disorder
CPT/HCPCS: 81003; 81015; 87077; 87086; 87186; 99283